=== PATIENT | female | born 1970 ===

== ENCOUNTER 2017-02-02 11:44 | Emergency (ER) | payer OTHER ==
[2017-02-02 12:21] VITALS: BMI 25.2
--- NOTE | 2017-02-02 13:24 | ED PDOC ---
HPI: Back Time Seen by Provider: 02/02/17 12:10 Chief Complaint (Nursing): Back Pain Chief Complaint (Provider): Back Pain History Per: Patient History/Exam Limitations: no limitations Onset/Duration Of Symptoms: Days (x3 days) Current Symptoms Are (Timing): Still Present Additional Complaint(s): 46 y/o female presents to the emergency department with a left sided flank pain x3 days. Reports the pain worsened this morning with movement or while trying to get up and describes it as a sharp, wave like pain that causes nausea. Denies radiation of pain elsewhere in the body, dysuria, vomiting, diarrhea, or fever. Past Medical History Reviewed: Historical Data, Nursing Documentation, Vital Signs - Medical History PMH: No Chronic Diseases - Surgical History Surgical History: Appendectomy - Family History Family History: States: No Known Family Hx - Social History Current smoker - smoking cessation education provided: No Alcohol: Occasional Drugs: Denies - Immunization History Hx Tetanus Toxoid Vaccination: No Hx Influenza Vaccination: No - Home Medications Home Medications: Ambulatory Orders Medication Instructions Recorded Cyclobenzaprine [Cyclobenzaprine 10 mg PO TID #9 tab 02/02/17 HCl] Naproxen 500 mg PO BID #20 tab 02/02/17 - Allergies Allergies/Adverse Reactions: Allergies Allergy/AdvReac Type Severity Reaction Status Date / Time No Known Allergies Allergy Verified 02/02/17 12:21 Review of Systems ROS Statement: Except As Marked, All Systems Reviewed And Found Negative Constitutional: Negative for: Fever Gastrointestinal: Positive for: Nausea. Negative for: Vomiting, Diarrhea Genitourinary Female: Negative for: Dysuria Musculoskeletal: Positive for: Other (Left-sided flank pain) Physical Exam - Reviewed Nursing Documentation Reviewed: Yes Vital Signs Reviewed: Yes - Physical Exam Appears: Positive for: Non-toxic, Uncomfortable Head Exam: Positive for: ATRAUMATIC, NORMAL INSPECTION, NORMOCEPHALIC Skin: Positive for: Normal Color, Warm, Dry Neck: Positive for: Normal, Supple Cardiovascular/Chest: Positive for: Regular Rate, Rhythm. Negative for: Murmur Respiratory: Positive for: Normal Breath Sounds. Negative for: Accessory Muscle Use, Respiratory Distress Gastrointestinal/Abdominal: Positive for: Normal Exam, Soft. Negative for: Tenderness Back: Positive for: Muscle Spasm (Present to the left side of the back when she moves. ). Negative for: L CVA Tenderness, R CVA Tenderness, Other (No left flank tenderness ) Neurologic/Psych: Positive for: Alert, Oriented (x3) Medical Decision Making Medical Decision Making: Time: 12:38 Initial impression: Back pain and flank pain. Differential include musculoskeletal pain and muscle spasm rule out renal colic Initial plan: --Abd & Pelvis w/o contrast CT --Urine DIP --Cyclobenzaprine 10 mg PO --Toradol 15 mg IV --Reassessment 1402 Dictated by: Karl Villalpando MD. ABD & PELV w/o PO Contrast Findings: Lower Thorax: Unremarkable Liver: Unremarkable. No gross lesion or ductal dilation Gallbladder Ducts: Unremarkable Spleen: Unremarkable Adrenals: Unremarkable. No mass. Kidneys and Ureters: Unremarkable. No hydronephrosis. No solid mass. Vasculature: Unremarkable. No aortic aneurysm. Bowel: Constipation, fecal impaction without obstruction. Appendix: Prior appendectomy Peritoneum: Unremarkable: No free fluid. No free air. Lymph Nods: Unremarkable. No enlarged lymph nodes. Bladder: Unremarkable. Reproductive: Unremarkable Bones: No acute fracture Other findings: None Impression: No acute finding related to/accounting for the clinial presentation. Additional benign and/or incidental findings described above. Scribe Attestation: Documented by Brie Lowe and Dinorah Dee, acting as a scribe for Delgado Mathias MD. Provider Scribe Attestation: All medical record entries made by the Scribe were at my direction and personally dictated by me. I have reviewed the chart and agree that the record accurately reflects my personal performance of the history, physical exam, medical decision making, and the department course for this patient. I have also personally directed, reviewed, and agree with the discharge instructions and disposition. Disposition - Clinical Impression Clinical Impression: Back pain - Patient ED Disposition Is Patient to be Admitted: No Doctor Will See Patient In The: Office Counseled Patient/Family Regarding: Studies Performed, Diagnosis, Need For Followup - Disposition Referrals: [facility] [Outside] Disposition: Routine/Home Disposition Time: 14:36 Condition: GOOD Additional Instructions: Take your medications as instructed. Follow up with your PCP in 2-3 days. Prescriptions: Cyclobenzaprine [Cyclobenzaprine HCl] 10 mg PO TID #9 tab Naproxen 500 mg PO BID #20 tab Instructions: Acute Low Back Pain (ED) Forms: [facility] ED School/Work Excuse Print Language: GREENLANDIC
--- NOTE | 2017-02-02 14:04 | CT ---
PROCEDURE: CT Abdomen and Pelvis without intravenous contrast HISTORY: Left flank pain. By history, negative test (concurrent with this examination). COMPARISON: 03/15/2012. CT abdomen and pelvis TECHNIQUE: Technique. Contrast Dose: Radiation dose: Total exam DLP = mGy-cm. This CT exam was performed using one or more of the following dose reduction techniques: Automated exposure control, adjustment of the mA and/or kV according to patient size, and/or use of iterative reconstruction technique. FINDINGS: LOWER THORAX: Unremarkable. LIVER: Unremarkable. No gross lesion or ductal dilatation. GALLBLADDER AND BILE DUCTS: Unremarkable. PANCREAS: Unremarkable. No gross lesion or ductal dilatation. SPLEEN: Unremarkable. ADRENALS: Unremarkable. No mass. KIDNEYS AND URETERS: Unremarkable. No hydronephrosis. No solid mass. VASCULATURE: Unremarkable. No aortic aneurysm. BOWEL: Constipation, fecal impaction without obstruction. APPENDIX: Prior appendectomy PERITONEUM: Unremarkable. No free fluid. No free air. LYMPH NODES: Unremarkable. No enlarged lymph nodes. BLADDER: Unremarkable. REPRODUCTIVE: Unremarkable. BONES: No acute fracture. OTHER FINDINGS: None. IMPRESSION: No acute findings related to/accounting for the clinical presentation. Additional benign and/or incidental findings described above.
[2017-02-02 15:10] VITALS: BP 115/72; PULSE 78; RESP 18; O2SAT 99
== END 2017-02-02 15:10 | disposition home or self-care (01) ==
LOC: H.ER 11:44
DX: M54.5 Low back pain (principal)
CPT/HCPCS: 74176; 81025; 96374; 99283; J1885